=== PATIENT | female | born 1995 | race Caucasian/White ===

== ENCOUNTER 2019-08-13 18:48 | Emergency (ER) | payer OTHER ==
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
[2019-08-13 19:03] VITALS: BP 135/85; PULSE 80; TEMP 97.6; BMI 28.2
[2019-08-13] MEDS ORDERED: ACETAMINOPHEN 500 MG TABLET (FP) PO ONE (21:37)
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
[2019-08-13 23:46] LABS: URINE APPEARANCE CLEAR; URINE BILIRUBIN NEGATIVE (NEGATIVE); URINE COLOR YELLOW; URINE GLUCOSE (UA) NEGATIVE (NEGATIVE); URINE KETONE TRACE (NEGATIVE); URINE LEUK ESTERASE NEGATIVE (NEGATIVE); URINE NITRITE NEGATIVE (NEGATIVE); URINE PROTEIN NEGATIVE (NEGATIVE); URINE UROBILINOGEN 0.2 mg/dL (0.2-1.0)
[2019-08-13] MEDS ORDERED: ACETAMINOPHEN 325 MG TABLET (FP) ONE (23:50)
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
--- NOTE | 2019-08-14 12:40 | EKG ---
Test Reason : Blood Pressure : / mmHG Vent. Rate : 073 BPM Atrial Rate : 073 BPM P-R Int : 142 ms QRS Dur : 078 ms QT Int : 388 ms P-R-T Axes : 028 047 050 degrees QTc Int : 427 ms SINUS RHYTHM WITH MARKED SINUS ARRHYTHMIA OTHERWISE NORMAL ECG NO PREVIOUS ECGS AVAILABLE Confirmed by ALBERTO BYRNE MD ([id number]) on 08/14/2019 12:39:43 PM Referred By: Confirmed By:ALBERTO BYRNE MD
== END 2019-08-14 01:13 | disposition home or self-care (01) ==
LOC: JER 18:48
DX: R07.89 Other chest pain (principal); R07.81 Pleurodynia; V43.52XA Car driver injured in collision with other type car in traffic accident, initial encounter; Y92.414 Local residential or business street as the place of occurrence of the external cause; Y93.89 Activity, other specified; Y99.8 Other external cause status; Z88.0 Allergy status to penicillin
CPT/HCPCS: 36415; 71046-TC-FY; 81003; 84484; 84703; 93005; 93010; 99282-25